=== PATIENT | male | born 1950 | race Caucasian/White ===

== ENCOUNTER → 2017-12-05 | Day surgery (SDC) | payer OTHER ==
[~2017-12-05] MED LIST: PROPOFOL 40 ML IV
[2017-12-05] MEDS: IV RINGERS,LACTATED 1000ML 1,000 ML IV (11:16)
== END | disposition home or self-care (01) ==
LOC: ENDOS 10:37
DX: Z12.11 Encounter for screening for malignant neoplasm of colon (principal); D12.2 Benign neoplasm of ascending colon; K29.50 Unspecified chronic gastritis without bleeding; K21.0 Gastro-esophageal reflux disease with esophagitis; K57.30 Diverticulosis of large intestine without perforation or abscess without bleeding; K64.0 First degree hemorrhoids; E78.5 Hyperlipidemia, unspecified; I10 Essential (primary) hypertension; K44.9 Diaphragmatic hernia without obstruction or gangrene; M10.9 Gout, unspecified; Z98.890 Other specified postprocedural states
CPT/HCPCS: 43239; 45378; 45380; 88305; 88342; J2704